=== PATIENT | male | born 1985 | race Caucasian/White ===

== ENCOUNTER 2022-03-18 13:24 | Emergency (ER) | payer BC, SELFPAY ==
[2022-03-18 13:38] VITALS: BP 157/90; PULSE 104; RESP 18; TEMP 36.9; O2SAT 100; BMI 27.0
--- NOTE | 2022-03-18 14:00 | ED_ITS ---
HPI - General Adult General Time Seen by Provider: 14:00 Date Seen: 03/18/22 Chief complaint: Anxiety Stated complaint: Facial Numbness, Shakey Time Seen by Provider: 03/18/22 13:52 Source: patient and family Mode of arrival: ambulatory Limitations: no limitations History of Present Illness HPI narrative: 36-year-old male who comes in today with episode of lightheadedness and anxiety. Patient reports a history of anxiety. He has noted recently that when he is in the car either driving or as a passenger he will get dizziness and subsequently this will cause panic attacks. Usually this gets better quickly. Today he was driving experience nausea. Stopped and stood up and got quite lightheaded. Subsequently started having some shortness of breath, tingling in hands and feet and face. This has persisted and so he came in the emergency department. He is feeling a little bit better now. He denies any palpitations or chest pain for this. Denies head pain or head injury. Admits to alcohol use yesterday but nothing to. Says he has been drinking lots of water this morning. Related Data Home Medications Medication Instructions Recorded Confirmed omeprazole 40 mg capsule,delayed mg 03/18/22 release Allergies Allergy/AdvReac Type Severity Reaction Status Date / Time No Known Drug Allergies Allergy Verified 03/18/22 13:48 Review of Systems Status of ROS: Reports: 10 or more systems reviewed and unremarkable except as noted in History and below PFSH PFSH Social History Smoking Status: Current some day smoker What tobacco products do you use: cigarettes Do you use any of these nicotine containing products: None Second hand tobacco smoke exposure: No How often do you have a drink containing alcohol: 4 or more times a week How many standard drinks containing alcohol do you have on a typical day: 1 or 2 How often do you have six or more drinks on one occasion: Never AUDIT-C Alcohol total score: 4 Non-prescribed substance use: denies use Exam Const: Vital Signs, click to edit/add: Vital Signs - 24 hr 03/18/22 13:38 03/18/22 14:28 03/18/22 15:01 Temperature 98.5 F Pulse Rate [Right Pulse Oximeter] 104 H 93 85 Respiratory Rate 18 16 16 Blood Pressure [Ri ght Upper Arm] 157/90 H Pulse Oximetry 100 99 95 Documenting provider has reviewed patient's vital signs: yes Common normals: no apparent distress, oriented x3, alert and well nourished HENMT: Common normals: normocephalic, head/scalp atraumatic, external ears normal and external nose normal Head and scalp: normocephalic and atraumatic Nose: external nose normal External ear: external ears normal Eye: Common normals: PERRL and conjunctivae normal Conjunctiva: conjunctiva(e) normal Pupil: PERRL Neck & C-Spine: Common normals: full ROM, no lymphadenopathy and supple Chest: Common normals: palpation of chest normal Resp: Common normals: normal respiratory effort and clear to auscultation bi laterally Auscultation: clear to auscultation bilaterally Cardio: Common normals: regular rate, regular rhythm and no murmurs Rate: regular rate Rhythm: regular rhythm GI: Common normals: Normal to inspection, nondistended, normoactive bowel sounds present, soft to palpation and non-tender Palpation: soft : Common normals: no CVA tenderness Bladder/kidney exam: no CVA tenderness Back & Pelvis: Common normals: no CVA tenderness and thoracic and lumbar spine normal to inspection Extremity: Common normals: normal to inspection, full ROM and no pedal edema Neuro: Common normals: oriented x3, CN's II-XII intact bilaterally and no focal motor deficits Sensorium/orientation: alert Psych: Common normals: mental status grossly normal Skin: Common normals: no rashes or lesions noted General skin exam: no rashes or lesions noted Course Reevaluation(s) Reevaluation #1: Labs are reassuring, patient remains finally stable in the emergency department and can be discharged. Symptoms have improved. We discussed further treatment options including CBT and physical/occupational therapy. He will follow up with primary care doctor. Time: 15:11 Vital Signs Vital signs: Initial Vital Signs Temperature 98.5 F 03/18/22 13:38 Temperature Source Oral 03/18/22 13:38 Pulse Rate 104 H 03/18/22 13:38 Respiratory Rate 18 03/18/22 13:38 Blood Pressure 157/90 H 03/18/22 13:38 Blood Pressure Mean 112 03/18/22 13:38 Blood Pressure Position Sitting 03/18/22 13:38 Pulse Oximetry 100 03/18/22 13:38 Oxygen Delivery Method 03/18/22 13:38 Vital Signs Temperature 98.5 F 03/18/22 13:38 Pulse Rate 104 H 03/18/22 13:38 Respiratory Rate 18 03/18/22 13:38 Blood Pressure 157/90 H 03/18/22 13:38 Pulse Oximetry 100 03/18/22 13:38 Temperature 98.5 F 03/18/22 13:38 Pulse Rate 85 03/18/22 15:01 Respiratory Rate 16 03/18/22 15:01 Blood Pressure 157/90 H 03/18/22 13:38 Pulse Oximetry 95 03/18/22 15:01 Medical Decision Making MDM Narrative Medical decision making narrative: Patient seen and examined, prior records are reviewed. Differential diagnosis includes but not limited to acute anxiety, vertigo, dysrhythmia, dehydration, hyponatremia, other electrolyte disturbance. Patient presents with lightheadedness and what sounds like paresthesias with early carpal pedal spasm. Feeling better now although still mildly tachycardic and was little bit tremulous when he 1st arrived in the emergency department. Labs and EKG are ordered. IV fluids are ordered. Medical Records Medical records reviewed: Yes I reviewed the patient's medical records Lab Data Lab results reviewed: Yes I reviewed the patient's lab results Labs: Lab Results 03/18/22 Range/Units 14:15 Sodium 137 (135-149) mmol/L Potassium 3.4 L (3.6-5.1) mmol/L Chloride 107 (96-114) mmol/L Carbon Dioxide 23 (20-32) mmol/L BUN 15 (5-24) mg/dL Creatinine 1.0 (0.5-1.5) mg/dL Estimated Creat Clear 115.41 Estimated GFR 100 ml/min Glucose 103 (60-115) mg/dL Calcium 9.0 (8.4-10.6) mg/dL ECG Data Attestation: I personally reviewed and interpreted this ECG as follows: Prior ECG tracings: not available for review Interpretation: Performed at 2:05PM demonstrates NSR rate 89, no acute ST elevations or depressions, [place] 164, normal axis. No prior for comparison. Discharge Plan Discharge Clinical Impression: Near syncope, Acute anxiety Patient Disposition: Home, Self-Care Condition: Improved Instructions: Near Syncope (ED), Anxiety (ED) Additional Instructions: Follow-up with your primary care doctor this week, consider follow-up to a [facility] Activity Level: No Restrictions Discharge Diet: Regular Prescriptions: No Action omeprazole 40 mg capsule,delayed release(DR/EC) 0RF Label Comments: TAKE 1 CAPSULE (40 MG) BY MOUTH ONCE DAILY BEFORE A MEAL. Follow Up/Referrals: Norm Duncan MD [Primary Care Provider] - Stand Alone Forms: [facility] Info Instructions
[2022-03-18] MEDS: 0.9 % SODIUM CHLORIDE 1000 ml 1,000 ML IV (14:21)
[2022-03-18 14:28] VITALS: PULSE 93; RESP 16; O2SAT 99
[2022-03-18 14:42] LABS: Chloride* 107 mmol/L (96-114)
[2022-03-18 14:43] LABS: Potassium* 3.4 mmol/L (3.6-5.1); Sodium* 137 mmol/L (135-149)
[2022-03-18 14:45] LABS: Carbon Dioxide* 23 mmol/L (20-32); Est. Creatinine Clearance* 115.41; Estimated Glomerular Filt Rate 100 ml/min
[2022-03-18 14:46] LABS: Blood Urea Nitrogen* 15 mg/dL (5-24); Glucose* 103 mg/dL (60-115)
[2022-03-18 15:01] VITALS: PULSE 85; RESP 16; O2SAT 95
== END 2022-03-18 15:21 | disposition home or self-care (01) ==
LOC: ED 14:24
PROVIDERS: Emergency Provider Family Medicine; PCP Surgery
DX: R55 Syncope and collapse (principal); F41.9 Anxiety disorder, unspecified
CPT/HCPCS: 36415; 80048; 93005; 96360; 99284; J7030

== ENCOUNTER 2022-03-20 13:26 | Emergency (ER) | payer BC, SELFPAY ==
[2022-03-20] VITALS (7 sets, daily range): BP systolic 116–164; BP diastolic 74–106; PULSE 52–91; RESP 17–20; TEMP 37.1; O2SAT 96–99; BMI 26.4
--- NOTE | 2022-03-20 13:57 | ED.NEUROSD ---
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 However, he reports persistent and severe symptoms causing difficulty with ability to perform ADLs. His significant other reports the symptoms are worsening his anxiety, and symptoms appear to precede the anxiety. The patient denies chest pain, shortness a breath, or abdominal pain. The patient reports some nausea associated with symptoms and persisting at present. Patient reports visual field deficits with black/white 'dots/speckles' noted the periphery. He denies trauma or injury. He reports all previous manic episodes have self-resolved. He does have history of serotonin syndrome associated with SSRI use. Related Data Home Medications Medication Instructions Recorded Confirmed omeprazole 40 mg capsule,delayed mg 03/18/22 release Allergies Allergy/AdvReac Type Severity Reaction Status Date / Time No Known Drug Allergies Allergy Verified 03/18/22 13:48 PFSH PFSH Social History Smoking Status: Current some day smoker What tobacco products do you use: cigarettes Do you use any of these nicotine containing products: None Second hand tobacco smoke exposure: No How often do you have a drink containing alcohol: 4 or more times a week How many standard drinks containing alcohol do you have on a typical day: 1 or 2 How often do you have six or more drinks on one occasion: Never AUDIT-C Alcohol total score: 4 Non-prescribed substance use: denies use Exam Const: Vital Signs, click to edit/add: Vital Signs - 24 hr 03/20/22 13:49 03/20/22 14:43 03/20/22 15:10 Temperature 98.8 F Pulse Rate [Pulse Oximeter] 91 64 Respiratory Rate 18 17 Blood Pressure [Ri ght Upper Arm] 164/106 H 133/86 Pulse Oximetry 99 97 97 Oxygen Delivery Me thod Room Air Room Air Room Air 03/20/22 15:30 03/20/22 16:00 03/20/22 17:30 Temperature Pulse Rate [Pulse Oximeter] 55 L 64 52 L Respiratory Rate 19 20 Blood Pressure [Ri ght Upper Arm] 128/74 116/80 126/84 Pulse Oximetry 96 96 96 Oxygen Delivery Me thod Room Air Room Air Room Air 03/20/22 18:00 Temperature Pulse Rate [Pulse Oximeter] 60 Respiratory Rate 20 Blood Pressure [Ri t Upper Arm] 137/93 H Pulse Oximetry 98 Oxygen Delivery Me thod Room Air Documenting provider has reviewed patient's vital signs: yes Common normals: no apparent distress, oriented x3, alert and well nourished General appearance: cooperative, comfortable, well kempt and well developed Orientation/consciousness: Yes awake, Yes oriented to person and Yes oriented to place HENMT: Common normals: normocephalic, head/scalp atraumatic, hearing grossly normal bilaterally, external ears normal and TM's normal bilaterally Head and scalp: normocephalic and atraumatic External ear: external ears normal Tympanic membrane: TM's normal bilaterally Mouth: oral and palatal mucosa normal and tongue normal Eye: Common normals: PERRL and EOMs intact bilaterally Alignment: alignment normal Pupil: PERRL and accommodation reflex normal Neck & C-Spine: Common normals: full ROM, no lymphadenopathy and supple Resp: Common normals: normal respiratory effort, no retractions, no use of accessory muscles and clear to auscultation bilaterally Auscultation: clear to auscultation bilaterally Cardio: Common normals: regular rate, regular rhythm, S1 normal heart sound, S2 normal heart sound, no gallops, no clicks and no murmurs Rate: regular rate Rhythm: regular rhythm Heart sounds: S1 normal and S2 normal GI: Common normals: Normal to inspection, nondistended, normoactive bowel sounds present, soft to palpation and non-tender Palpation: soft Extremity: Common normals: normal to inspection and full ROM Neuro: [place]ascade Coma Scale: document GCS findings (NIHSS score 0) Cascade coma scale eye opening: Spontaneous (4) Cascade coma scale verbal response: Orientated (5) [place] coma scale motor response: Obey commands (6) Cascade coma scale total score: 15 Common normals: oriented x3 Sensorium/orientation: awake, alert, oriented to person and oriented to place Coordination/balance: [id number] test normal and other (See PT exam for abnormal coordination findings) Speech: speech normal Gait (neuro): normal gait Motor exam: strength 5/5 throughout, no pronator drift and other (Patient noted to have left lower extremity weakness with testing) Coordination: [id number] test normal and other (See PT exam for abnormal coordination findings) Psych: Common normals: mental status grossly normal, thought process normal, cooperative, affect normal and speech normal Appearance: well kempt Speech: normal speech Thought process: normal thought process Insight: insight good Judgement: judgment good Skin: Common normals: no rashes or lesions noted General skin exam: no rashes or lesions noted Course Reevaluation(s) Reevaluation #1: Discussed findings and course with patient and his significant other, who requests more definitive findings with continued symptoms with additional imaging. Discussed PT findings that are inconsistent with peripheral findings. Time: 15:31 Reevaluation #2: Imaging and labs reviewed and discussed with patient and family. Patient reports improvement in symptoms. Patient's vital signs have remained stable. The results were discussed, and the patient verbalized understanding. Reasons for follow-up or return were discussed. Vital Signs Vital signs: Initial Vital Signs Temperature 98.8 F 03/20/22 13:49 Temperature Source Temporal Artery Scan 03/20/22 13:49 Pulse Rate 91 03/20/22 13:49 Respiratory Rate 18 03/20/22 13:49 Blood Pressure 164/106 H 03/20/22 13:49 Blood Pressure Mean 125 03/20/22 13:49 Blood Pressure Position Sitting 03/20/22 13:49 Pulse Oximetry 99 03/20/22 13:49 Oxygen Delivery Method 03/20/22 13:49 Vital Signs Temperature 98.8 F 03/20/22 13:49 Pulse Rate 91 03/20/22 13:49 Respiratory Rate 18 03/20/22 13:49 Blood Pressure 164/106 H 03/20/22 13:49 Pulse Oximetry 99 03/20/22 13:49 Oxygen Delivery Method 03/20/22 13:49 Temperature 98.8 F 03/20/22 13:49 Pulse Rate 60 03/20/22 18:00 Respiratory Rate 20 03/20/22 18:00 Blood Pressure 137/93 H 03/20/22 18:00 Pulse Oximetry 98 03/20/22 18:00 Oxygen Delivery Method 03/20/22 18:00 MDM - Neuro Symptoms/Deficit MDM Narrative Medical decision making narrative: Multiple differential diagnoses were considered protamine status. The life-threatening differential diagnoses considered include bacteremia or other infectious concern, subdural hematoma, CVA, subarachnoid hemorrhage, and hypertensive encephalopathy. Other differential diagnoses include electrolyte abnormalities, intoxication, seizure, as well as other etiologies. Lab Data Attestation: I reviewed the patient's lab results. Labs: Lab Results 03/20/22 03/20/22 03/20/22 Range/Units 13:58 14:50 14:50 WBC 8.05 (4.50-11.00) K/uL RBC 4.79 (4.30-5.90) m/uL Hgb 15.2 (13.5-17.5) gm/dL Hct 45.1 (37.0-53.0) % MCV 94 (80-100) fL MCH 32 (26-34) pg MCHC 34 (32-36) gm/dL RDW Coeff of Howard 12.1 (11.5-15.5) % Plt Count 262 (140-440) K/uL Neut % (Auto) 62.6 (42.0-72.0) % Lymph % (Auto) 25.5 (20-44) % [place] % (Auto) 8.0 (0.0-11.0) % Eos % (Auto) 1.9 (0.0-7.0) % Baso % (Auto) 0.6 (0.0-3.0) % Neut # (Auto) 5.05 (1.7-7.0) K/uL Lymph # (Auto) 2.05 (0.90-2.90) K/uL [place] # (Auto) 0.60 (0.00-0.90) K/UL Eos # (Auto) 0.15 (0.00-0.50) K/uL Baso # (Auto) 0.05 (0.00-0.30) K/uL Abs Immat Gran (auto) 0.11 (0.00-0.30) K/uL Sodium 139 (135-149) mmol/L Potassium 3.9 (3.6-5.1) mmol/L Chloride 106 (96-114) mmol/L Carbon Dioxide 27 (20-32) mmol/L BUN 10 (5-24) mg/dL Creatinine 1.0 (0.5-1.5) mg/dL Estimated Creat Clear 115.41 Estimated GFR 100 ml/min Glucose 106 (60-115) mg/dL Calcium 9.2 (8.4-10.6) mg/dL Total Bilirubin 0.2 (0.1-1.5) mg/dL AST 43 H (12-35) U/L ALT 40 (4-50) U/L Alkaline Phosphatase 54 (40-150) U/L Total Protein 7.4 (6.0-8.3) g/dL Albumin 4.4 (3.3-5.0) g/dL Urine Color (Yellow) Urine Appearance (Clear) Urine pH (5.0-8.5) Ur Specific [place] (1.000-1.030) Urine Protein (Negative) Urine Glucose (UA) (Negative) Urine Ketones (Negative) Urine Blood (Negative) Urine Nitrite (Negative) Urine Bilirubin (Negative) Urine Urobilinogen (0.2-1.0) Ur Leukocyte Esterase (Negative) Urine RBC (0-2) Urine WBC (0-5) Ur Squamous Epith Cells (None-Few) Urine Bacteria (None) Urine Opiates Screen (Negative) Ur Oxycodone Screen (Negative) Urine Methadone Screen (Negative) Ur Propoxyphene Screen (Negative) Ur Barbiturates Screen (Negative) U Tricyclic Antidepress (Negative) Ur Phencyclidine Scrn (Negative) Ur Amphetamines Screen (Negative) U Methamphetamines Scrn (Negative) U Benzodiazepines Scrn (Negative) Urine Cocaine Screen (Negative) U Marijuana (THC) Screen (Negative) Ur Drug Screen Comment SARS-CoV-2 (PCR) (Negative) POC Glucose 118 H (60-115) mg/dl 03/20/22 03/20/22 03/20/22 Range/Units 14:58 15:00 15:00 WBC (4.50-11.00) K/uL RBC (4.30-5.90) m/uL Hgb (13.5-17.5) gm/dL Hct (37.0-53.0) % MCV (80-100) fL MCH (26-34) pg MCHC (32-36) gm/dL RDW Coeff of Howard (11.5-15.5) % Plt Count (140-440) K/uL Neut % (Auto) (42.0-72.0) % Lymph % (Auto) (20-44) % [place] % (Auto) (0.0-11.0) % Eos % (Auto) (0.0-7.0) % Baso % (Auto) (0.0-3.0) % Neut # (Auto) (1.7-7.0) K/uL Lymph # (Auto) (0.90-2.90) K/uL [place] # (Auto) (0.00-0.90) K/UL Eos # (Auto) (0.00-0.50) K/uL Baso # (Auto) (0.00-0.30) K/uL Abs Immat Gran (auto) (0.00-0.30) K/uL Sodium (135-149) mmol/L Potassium (3.6-5.1) mmol/L Chloride (96-114) mmol/L Carbon Dioxide (20-32) mmol/L BUN (5-24) mg/dL Creatinine (0.5-1.5) mg/dL Estimated Creat Clear Estimated GFR ml/min Glucose (60-115) mg/dL Calcium (8.4-10.6) mg/dL Total Bilirubin (0.1-1.5) mg/dL AST (12-35) U/L ALT (4-50) U/L Alkaline Phosphatase (40-150) U/L Total Protein (6.0-8.3) g/dL Albumin (3.3-5.0) g/dL Urine Color Yellow (Yellow) Urine Appearance Clear (Clear) Urine pH 7.5 (5.0-8.5) Ur Specific [place] 1.015 (1.000-1.030) Urine Protein Negative (Negative) Urine Glucose (UA) Negative (Negative) Urine Ketones Negative (Negative) Urine Blood Negative (Negative) Urine Nitrite Negative (Negative) Urine Bilirubin Negative (Negative) Urine Urobilinogen 0.2 (0.2-1.0) Ur Leukocyte Esterase Negative (Negative) Urine RBC 0-2 (0-2) Urine WBC 0-2 (0-5) Ur Squamous Epith Cells None (None-Few) Urine Bacteria None (None) Urine Opiates Screen Negative (Negative) Ur Oxycodone Screen Negative (Negative) Urine Methadone Screen Negative (Negative) Ur Propoxyphene Screen Negative (Negative) Ur Barbiturates Screen Negative (Negative) U Tricyclic Antidepress Negative (Negative) Ur Phencyclidine Scrn Negative (Negative) Ur Amphetamines Screen Negative (Negative) U Methamphetamines Scrn Negative (Negative) U Benzodiazepines Scrn Negative (Negative) Urine Cocaine Screen Negative (Negative) U Marijuana (THC) Screen Negative (Negative) Ur Drug Screen Comment See Note SARS-CoV-2 (PCR) Negative SARS-CoV-2 (Negative) POC Glucose (60-115) mg/dl Imaging Data CT scan - head: Attestation: I have reviewed the pertinent imaging results. Radiologist's impression: IMPRESSION: No acute intracranial abnormality. MR Brain: Attestation: I have reviewed the pertinent imaging results. Radiologist's impression: IMPRESSION: 1. No acute intracranial abnormality. 2. Few punctate T2 FLAIR hyperintensities in the supratentorial white matter are nonspecific, though typical for sequelae of minimal chronic microvascular ischemic changes or migraine headaches. ECG Data Attestation: I personally reviewed and interpreted this ECG as follows: (NSR with normal axis. 63bpm. Normal intervals without ST-T wave changes.) Prior ECG tracings: not available for review Discharge Plan Discharge Clinical Impression: Complicated migraine, Near syncope Patient Disposition: Home, Self-Care Condition: Improved Instructions: Migraine Headache (ED) Additional Instructions: Thank you for choosing [facility] for your care today. Drink plenty of water. Consider Riboflavin (over the counter) 400mg each daily. Avoid headache triggers including drastic changes in caffeine intake, cheeses, significant changes in sugar intake, etc. There are foods known to cause or trigger migraines in patients, and you may consider keeping a food and headache log to evaluate if you have sensitivities to certain foods. Take medications as directed. There is a condition called rebound headache phenomenon that occurs with medication overuse. If headaches change in nature, frequency, intensity or there are new neurological concerns, you should follow-up with your primary physician who may recommend neurology consult for further evaluation. Consider referral to [facility] [address], for vision therapy. I recommend calling primary care for follow-up in the next 3-5 days. If new or worsening symptoms develop or you have any concerns in the meantime, please call your primary care clinic or return to the ER for re-evaluation. Activity Level: No Restrictions Discharge Diet: Regular Prescriptions: No Action omeprazole 40 mg capsule,delayed release(DR/EC) Label Comments: TAKE 1 CAPSULE (40 MG) BY MOUTH ONCE DAILY BEFORE A MEAL. Follow Up/Referrals: Norm Duncan MD [Primary Care Provider] - Stand Alone Forms: [facility] Info Instructions
--- NOTE | 2022-03-20 13:58 | CRLHL7_ITS ---
For Patients: As a result of the Century Cures Act, medical imaging exams and procedure reports are released immediately into your electronic medical record. You may view this report before your referring provider. If you have questions, please contact your health care provider. INDICATION: Dizziness. TECHNIQUE: CT head without contrast. COMPARISON: None. FINDINGS: Cerebral parenchyma: No evidence of acute territorial infarct. No acute intraparenchymal hemorrhage. No significant mass effect/midline shift. Normal parker-white matter differentiation. Extra-axial spaces: No extra-axial collection or hemorrhage. Ventricles: Unremarkable. Calvarium: Intact. Visualized paranasal sinuses/mastoid air cells: Mild mucosal opacification of the ethmoid air cells. Posterior fossa: No cerebellar tonsillar herniation. Visualized orbits: Unremarkable. IMPRESSION: No acute intracranial abnormality. Please note that all CT scans at this facility use dose modulation, iterative reconstruction, and/or weight-based dosing when appropriate to reduce radiation dose to as low as reasonably achievable. Dictated by Kamran Raphael MD @ 03/20/2022 3:11:54 PM (Electronically Signed)
[2022-03-20 14:33] LABS: Glucose, Point-of-Care* 118 mg/dl (60-115)
--- NOTE | 2022-03-20 14:41 | ED.NURSE ---
Physical Therapy in room for consult.
[2022-03-20 15:07] LABS: Basophils Absolute Auto 0.05 K/uL (0.00-0.30); Basophils Percent Auto 0.6 % (0.0-3.0); Eosinophils Absolute Auto 0.15 K/uL (0.00-0.50); Eosinophils Percent Auto 1.9 % (0.0-7.0); Hematocrit 45.1 % (37.0-53.0); Hemoglobin* 15.2 gm/dL (13.5-17.5); Immature Granulocytes Abs Auto 0.11 K/uL (0.00-0.30); Lymphocytes Absolute Auto 2.05 K/uL (0.90-2.90); Lymphocytes Percent Auto 25.5 % (20-44); Mean Corpuscular HGB Conc 34 gm/dL (32-36); Mean Corpuscular Hemoglobin 32 pg (26-34); Mean Corpuscular Volume 94 fL (80-100); Neutrophils Absolute Auto 5.05 K/uL (1.7-7.0); Neutrophils Percent Auto 62.6 % (42.0-72.0); Platelet Count* 262 K/uL (140-440); RDW Coefficient of Variation % 12.1 % (11.5-15.5); Red Blood Count 4.79 m/uL (4.30-5.90); White Blood Count* 8.05 K/uL (4.50-11.00)
--- NOTE | 2022-03-20 15:09 | REH.PT ---
Pt seen bedside for PT consult. Complains of dizziness and balance issues. Reports that when he is walking slowly it feels as if he is racing ahead like on a roller coaster. Physical Assessment: While standing at edge of bed pt demonstrated uneven visual tracking when rotating head side<>side. Unsteady with head turns side<>side with eyes open and steady with eyes closed. MMT of LE's and UE's indicate deficits of left hip flexion, abduction and knee flexion and knee extension all 3+/5 compared to 5/5 on contralateral side. Single leg stance on right LE normal without LOB, on Left LE pt had immediate loss of balance. Gait steady without AD but pt reports visual feedback that doesn't match the speed with which he is walking. updated on findings by content writer.
[2022-03-20 15:12] LABS: Appearance Urine Clear (Clear); Bilirubin Urine Negative (Negative); Blood Urine Negative (Negative); Color Urine Yellow (Yellow); Glucose Urine Negative (Negative); Ketones Urine Negative (Negative); Leukocyte Esterase Urine Negative (Negative); Nitrite Urine Negative (Negative); Protein Urine Negative (Negative); Specific Gravity Urine 1.015 (1.000-1.030); Urobilinogen Urine 0.2 (0.2-1.0); pH Urine 7.5 (5.0-8.5)
[2022-03-20 15:16] LABS: Amphetamine Screen Urine Negative (Negative); Barbiturate Screen Urine Negative (Negative); Benzodiazepines Screen Urine Negative (Negative); Cannabinoid Screen Urine Negative (Negative); Cocaine Screen Urine Negative (Negative); Methadone Screen Urine Negative (Negative); Methamphetamines Screen Urine Negative (Negative); Opiate Screen Urine Negative (Negative); Oxycodone Screen Urine Negative (Negative); Phencyclidine Screen Urine Negative (Negative); Tricyclic Antidepressant Urine Negative (Negative)
[2022-03-20 15:18] LABS: Albumin* 4.4 g/dL (3.3-5.0); Chloride* 106 mmol/L (96-114); Potassium* 3.9 mmol/L (3.6-5.1); Sodium* 139 mmol/L (135-149)
[2022-03-20 15:20] LABS: Est. Creatinine Clearance* 115.41; Estimated Glomerular Filt Rate 100 ml/min; Slide Review Reflex No
[2022-03-20 15:21] LABS: Alanine Aminotransferase* 40 U/L (4-50); Alkaline Phosphatase* 54 U/L (40-150); Aspartate Amino Transferase* 43 U/L (12-35); Bilirubin Total* 0.2 mg/dL (0.1-1.5); Blood Urea Nitrogen* 10 mg/dL (5-24); Calcium* 9.2 mg/dL (8.4-10.6); Carbon Dioxide* 27 mmol/L (20-32); Glucose* 106 mg/dL (60-115); Total Protein* 7.4 g/dL (6.0-8.3)
[2022-03-20 15:37] LABS: RBC Urine 0-2 (0-2); WBC Urine 0-2 (0-5)
[2022-03-20] MEDS: ONDANSETRON 2 MG/ML inj 4 MG IVP (15:37)
--- NOTE | 2022-03-20 15:56 | CRLHL7_ITS ---
For Patients: As a result of the Century Cures Act, medical imaging exams and procedure reports are released immediately into your electronic medical record. You may view this report before your referring provider. If you have questions, please contact your health care provider. INDICATION: Dizziness. TECHNIQUE: Multiplanar multisequence MR imaging acquired the brain prior to and following intravenous contrast. COMPARISON: CT brain 03/20/2022 FINDINGS: The ventricles and sulci are within normal limits for patient age. No mass effect or midline shift. A few punctate T2 FLAIR hyperintensities in the supratentorial white matter, nonspecific. No intracranial hemorrhage or pathologic extra-axial fluid collection. No diffusion restriction to suggest acute infarction. No pathologic intracranial enhancement. 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 The major arterial flow voids of the skullbase are preserved. The globes are symmetric. [id number] ethmoid sinus mucosal thickening. The mastoid air cells are clear. IMPRESSION: 1. No acute intracranial abnormality. 2. Few punctate T2 FLAIR hyperintensities in the supratentorial white matter are nonspecific, though typical for sequelae of minimal chronic microvascular ischemic changes or migraine headaches. Dictated by Eddi Still MD @ 03/20/2022 5:31:34 PM (Electronically Signed)
[2022-03-20 16:09] LABS: SARS PCR* Negative SARS-CoV-2 (Negative)
--- NOTE | 2022-03-20 16:30 | ED.NURSE ---
Pt at MRI for exam.
== END 2022-03-20 18:13 | disposition home or self-care (01) ==
PROVIDERS: Emergency Provider Family Medicine; PCP Surgery
DX: R55 Syncope and collapse (principal); G43.909 Migraine, unspecified, not intractable, without status migrainosus
CPT/HCPCS: 36415; 70450; 70553; 80053; 80306; 81001; 82947; 85025; 87635; 93005; 96374; 97161; 99284; 99285; A9575; J2405

== ENCOUNTER 2023-03-02 15:10 | Emergency (ER) | payer BC, SELFPAY ==
[2023-03-02 15:22] VITALS: BP 141/104; PULSE 67; RESP 22; TEMP 36.4; O2SAT 100; BMI 27.1
--- NOTE | 2023-03-02 15:54 | ED.GENADULT ---
HPI - General Adult General Date Seen: 03/02/23 Chief complaint: Dizziness/Vertigo Stated complaint: Dizzy, high blood pressure Time Seen by Provider: 03/02/23 15:37 Source: patient Mode of arrival: ambulatory Limitations: no limitations History of Present Illness HPI narrative: Patient is a 37-year-old male who a year ago started to have problems with vertigo, had a workup with no significant findings and ultimately was diagnosed with vestibular migraine. He also tells me that as of last year he started to have higher blood pressures, was told to monitor it and ultimately had been advised to make some lifestyle changes. He does tell me since then he started to smoke again and has a higher stressed job. He says this morning he had bent down to empty out a sandbox, stood up and developed vertigo. He feels dizzy when he walks or when he looks down, symptoms are similar to normal but he says while he feels slightly dizzy every day he usually gets better with Dramamine and today symptoms have persisted. He does not get headaches, he does get some pain behind his eyes. He has not had any vomiting. He did start to follow his blood pressure this morning and noted that it was elevated, so he thought he should come in to be checked. Related Data Home Medications Medication Instructions Recorded Confirmed omeprazole 40 mg capsule,delayed mg 03/18/22 release Allergies Allergy/AdvReac Type Severity Reaction Status Date / Time No Known Drug Allergies Allergy Verified 03/18/22 13:48 Review of Systems Status of ROS: Reports: 10 or more systems reviewed and unremarkable except as noted in History and below PFSH [facility] Social History Smoking Status: Current some day smoker What tobacco products do you use: cigarettes Do you use any of these nicotine containing products: None Second hand tobacco smoke exposure: No How often do you have a drink containing alcohol: 4 or more times a week How many standard drinks containing alcohol do you have on a typical day: 3 or 4 How often do you have six or more drinks on one occasion: Never AUDIT-C Alcohol total score: 5 Non-prescribed substance use: denies use service: Yes Exam Narrative: Exam Narrative: Vital signs as noted above. In general, an alert, well-appearing patient. Head: Normocephalic, atraumatic. Eyes: Pupils are equal reactive. Extraocular movements are full. Conjunctivae are normal. Some nystagmus on leftward gaze. ENT: Mucous membranes are moist. Throat is normal. TMs normal bilaterally. Neck: Supple without lymphadenopathy. Heart: Regular rate and rhythm. No murmur or rub. Lungs: Clear bilaterally. No increased work of breathing, crackles or wheezes. Abdomen: Soft and nontender. No organomegaly. Extremities: Well perfused. No edema. No calf tenderness. Pulses intact. Neurologic: Patient is alert and oriented to person and place. Speech is fluent. Face is symmetric. Moves all extremities equally. Cerebellar function intact by finger-nose testing. Affect: Normal. Skin: Warm and dry. Well perfused. Const: Vital Signs, click to edit/add: Vital Signs - 24 hr 03/02/23 15:22 03/02/23 17:06 Temperature 97.6 F Pulse Rate [Pulse Oximeter] 67 78 Respiratory Rate 22 16 Blood Pressure [Ri ght Upper Arm] 141/104 H 125/81 Pulse Oximetry 100 96 Oxygen Delivery Me thod Room Air Room Air Documenting provider has reviewed patient's vital signs: yes Course Course Hospital Course: Overall symptoms are consistent with his previous diagnosis of vestibular migraine, I do not see anything here to suggest a new acute process. Neurologic exam is unremarkable. Blood pressure here is somewhat elevated, but I have reviewed with him I do not think that is the cause of his symptoms today. I do not think imaging is needed. I have recommended that we treat symptomatically and see how his blood pressure does. I do think he may ultimately need treatment for his blood pressure at this point but I think this can be followed with primary care. I do not think symptoms today are likely related to ischemic or hemorrhagic stroke, dissection, or other acute process. Patient is feeling improved after treatment, symptoms are not entirely resolved but he is ambulatory without difficulty, nausea is gone. His labs are normal including CBC, metabolic panel, magnesium. In talking with him, it sounds like he has been seen by multiple different people for these symptoms, and has been tried on a number of different migraine preventative medicines. He has also been tried on medications for acute treatment such as sumatriptan but all of these medications cause various side effects. I have tried to reinforce with him that because I think he has some anxiety around taking medicines, he is likely to have some degree of side effects for all medications, and he may have to push through this to give medications a couple of weeks to see whether they work. I have encouraged him to make another follow-up appointment with neurology to discuss. In the meantime, he can use his Dramamine, I gave some Ativan and Zofran if needed for further symptoms. Return at any time for acute worsening. Blood pressure did normalize without specific treatment. Vital Signs Vital signs: Initial Vital Signs Temperature 97.6 F 03/02/23 15:22 Temperature Source Temporal Artery Scan 03/02/23 15:22 Pulse Rate 67 03/02/23 15:22 Pulse Rhythm Regular 03/02/23 15:22 Respiratory Rate 22 03/02/23 15:22 Blood Pressure 141/104 H 03/02/23 15:22 Blood Pressure Mean 116 H 03/02/23 15:22 Blood Pressure Position Supine 03/02/23 15:22 Pulse Oximetry 100 03/02/23 15:22 Oxygen Delivery Method Room Air 03/02/23 15:22 Vital Signs Temperature 97.6 F 03/02/23 15:22 Pulse Rate 67 03/02/23 15:22 Respiratory Rate 22 03/02/23 15:22 Blood Pressure 141/104 H 03/02/23 15:22 Pulse Oximetry 100 03/02/23 15:22 Oxygen Delivery Method Room Air 03/02/23 15:22 Temperature 97.6 F 03/02/23 15:22 Pulse Rate 78 03/02/23 17:06 Respiratory Rate 16 03/02/23 17:06 Blood Pressure 125/81 03/02/23 17:06 Pulse Oximetry 96 03/02/23 17:06 Oxygen Delivery Method Room Air 03/02/23 17:06 Medical Decision Making Lab Data Labs: Lab Results 03/02/23 Range/Units 16:10 WBC 10.58 (4.50-11.00) K/uL RBC 4.90 (4.30-5.90) m/uL Hgb 15.5 (13.5-17.5) gm/dL Hct 46.4 (37.0-53.0) % MCV 95 (80-100) fL MCH 32 (26-34) pg MCHC 33 (32-36) gm/dL RDW Coeff of [place] 11.8 (11.5-15.5) % Plt Count 197 (140-440) K/uL Neut % (Auto) 70.0 (42.0-72.0) % Lymph % (Auto) 21.2 (20-44) % [place] % (Auto) 7.2 (0.0-11.0) % Eos % (Auto) 0.9 (0.0-7.0) % Baso % (Auto) 0.5 (0.0-3.0) % Neut # (Auto) 7.42 H (1.7-7.0) K/uL Lymph # (Auto) 2.24 (0.90-2.90) K/uL [place] # (Auto) 0.80 (0.00-0.90) K/UL Eos # (Auto) 0.09 (0.00-0.50) K/uL Baso # (Auto) 0.05 (0.00-0.30) K/uL Abs Immat Gran (auto) 0.02 (0.00-0.30) K/uL Imm/Tot Granulo (auto) 0.2 % Sodium 139 (135-149) mmol/L Potassium 4.0 (3.6-5.1) mmol/L Chloride 105 (96-114) mmol/L Carbon Dioxide 27 (20-32) mmol/L BUN 13 (5-24) mg/dL Creatinine 0.9 (0.5-1.5) mg/dL Estimated Creat Clear 123.35 Estimated GFR 113 ml/min Glucose 102 (60-115) mg/dL Calcium 9.3 (8.4-10.6) mg/dL Magnesium 2.0 (1.5-2.6) mg/dL Discharge Plan Discharge Clinical Impression: Positional vertigo Patient Disposition: Home, Self-Care Condition: Improved Instructions: Dizziness (ED) Additional Instructions: Continue current medications. Consider monitoring blood pressure a few times a week and discuss management with your primary doctor. I would recommend another follow-up appointment with neurology to discuss prophylactic medication for vestibular migraine. Prescriptions: No Action omeprazole 40 mg capsule,delayed release(DR/EC) Patient Comments: TAKE 1 CAPSULE (40 MG) BY MOUTH ONCE DAILY BEFORE A MEAL. Follow Up/Referrals: Norm Duncan MD [Primary Care Provider] - Stand Alone Forms: [employer] Info Instructions
[2023-03-02 16:17] LABS: Basophils Absolute Auto 0.05 K/uL (0.00-0.30); Basophils Percent Auto 0.5 % (0.0-3.0); Eosinophils Absolute Auto 0.09 K/uL (0.00-0.50); Eosinophils Percent Auto 0.9 % (0.0-7.0); Hematocrit 46.4 % (37.0-53.0); Hemoglobin* 15.5 gm/dL (13.5-17.5); Immature Granulocytes Abs Auto 0.02 K/uL (0.00-0.30); Immature Granulocytes Pct Auto 0.2 %; Lymphocytes Absolute Auto 2.24 K/uL (0.90-2.90); Lymphocytes Percent Auto 21.2 % (20-44); Mean Corpuscular HGB Conc 33 gm/dL (32-36); Mean Corpuscular Hemoglobin 32 pg (26-34); Mean Corpuscular Volume 95 fL (80-100); Monocytes Percent Auto 7.2 % (0.0-11.0); Neutrophils Absolute Auto 7.42 K/uL (1.7-7.0); Platelet Count* 197 K/uL (140-440); RDW Coefficient of Variation % 11.8 % (11.5-15.5); White Blood Count* 10.58 K/uL (4.50-11.00)
[2023-03-02 16:20] LABS: Slide Review Reflex No
[2023-03-02] MEDS: ONDANSETRON 2 MG/ML inj 4 MG IVP (16:20)
[2023-03-02] MEDS: 0.9 % SODIUM CHLORIDE 1000 ml 1,000 ML IV (16:21)
[2023-03-02] MEDS: LORazepam 2 MG/ML inj 1 MG IVP (16:21)
[2023-03-02 16:32] LABS: Chloride* 105 mmol/L (96-114); Sodium* 139 mmol/L (135-149)
[2023-03-02 16:35] LABS: Blood Urea Nitrogen* 13 mg/dL (5-24); Carbon Dioxide* 27 mmol/L (20-32); Creatinine* 0.9 mg/dL (0.5-1.5); Est. Creatinine Clearance* 123.35; Estimated Glomerular Filt Rate 113 ml/min; Glucose* 102 mg/dL (60-115)
[2023-03-02 16:36] LABS: Calcium* 9.3 mg/dL (8.4-10.6)
[2023-03-02 17:06] VITALS: BP 125/81; PULSE 78; RESP 16; O2SAT 96
== END 2023-03-02 17:43 | disposition home or self-care (01) ==
PROVIDERS: Emergency Provider Emergency Medicine; PCP Surgery
DX: R42 Dizziness and giddiness (principal)
CPT/HCPCS: 36415; 80048; 83735; 85025; 93005; 96374; 96375; 99283; 99284; J2060; J2405; J7030

== ENCOUNTER 2023-05-11 12:13 | Emergency (ER) | payer BC, SELFPAY ==
[2023-05-11 12:35] VITALS: BP 160/99; PULSE 83; RESP 18; TEMP 37.4; O2SAT 97; BMI 28.5
--- NOTE | 2023-05-11 13:01 | ED.GENADULT ---
HPI - General Adult General Time Seen by Provider: 13:01 Date Seen: 05/11/23 Chief complaint: Sore Throat Stated complaint: Swelling lumps in neck, hard time swallowing Time Seen by Provider: 05/11/23 13:00 Source: patient and RN notes reviewed Mode of arrival: ambulatory Limitations: no limitations History of Present Illness HPI narrative: This 37-year-old male who is coming in with week's worth history of right sided neck/throat pain. States it started with sneezing if felt sharp pain in his neck. Since that time he is had pain with swallowing on the right side of his neck. He feels at times slight ever food may go into the wrong ?tube?. It is only on the right side. He went to urgent care in [place] couple weeks ago and was given antibiotics and steroids and did nothing. He maybe notes his voice is hoarse at times. No respiratory symptoms, no noted fevers but has felt warm at times. Does not note any double vision, no difficulty actually chewing. He can swallow but feels like the mechanism of swallowing may be difficult in causes pain on that right side inside his throat or neck. He notes in the last year he is felt dizzy, has developed migraine headaches which he never had. Over the last week he notes his arms were cramping up. He does not feel like food is getting stuck in the esophagus. Related Data Home Medications Medication Instructions Recorded Confirmed omeprazole 40 mg capsule,delayed 40 mg PO DAILY 03/18/22 05/11/23 release amoxicillin 500 mg tablet mg PO 05/11/23 famotidine 20 mg tablet 20 mg PO 05/11/23 prednisone 20 mg tablet 40 mg PO DAILY 05/11/23 05/11/23 Allergies Allergy/AdvReac Type Severity Reaction Status Date / Time No Known Drug Allergies Allergy Verified 05/11/23 12:38 Review of Systems Status of ROS: Reports: 6 or more systems reviewed and unremarkable except as noted in History and below [facility] Social History Smoking Status: Current some day smoker What tobacco products do you use: cigarettes Do you use any of these nicotine containing products: None Second hand tobacco smoke exposure: No How often do you have a drink containing alcohol: 4 or more times a week How many standard drinks containing alcohol do you have on a typical day: 3 or 4 How often do you have six or more drinks on one occasion: Never AUDIT-C Alcohol total score: 5 Non-prescribed substance use: denies use service: Yes Exam Const: Vital Signs, click to edit/add: Vital Signs - 24 hr 05/11/23 12:35 05/11/23 14:30 Temperature 99.4 F Pulse Rate [Pulse Oximeter] 83 69 Respiratory Rate 18 16 Blood Pressure [Ri ght Upper Arm] 160/99 H 129/83 Pulse Oximetry 97 97 Oxygen Delivery Me thod Room Air Room Air 37-year-old male is alert, interactive, no apparent distress. Pupils are equal round, sclera clear, extraocular muscles intact. TMs canals are normal, no evidence of infection or abnormality noted. He has symmetrical facial function. Speech is normal. Oropharynx shows normal posterior pharynx, palate does elevate, uvula and pharynx normal, no exudates or erythema. Dentition good repair, tongue normal in protrudes midline. Neck is supple, I feel no masses, no reproducible pain, no adenopathy, no thyromegaly masses or nodules. Lungs are clear, good air entry, no wheezing crackles. CV regular rate and rhythm, no murmur. Documenting provider has reviewed patient's vital signs: yes Course Course ED Course: This patient is going to have a soft tissue neck CT to rule out structural have normality this within the neck. He is aware he will need an IV as IV contrast is needed. Will do some baseline labs. Have reviewed with him if the workup is negative here, may need to see ENT next step. He states he does have an appointment in May with the ENT in [place]. Reevaluation(s) Time of Reevaluation #1: 15:06 Reevaluation #1: Reviewed his normal soft tissue neck CT and provided a copy. Labs are all normal and reassuring. We did spend some time discussing difficulty swallowing such as dysphagia. If food is getting stuck, that would suggest he would need an EGD. If he is having difficulty actually swallowing where he can not get food down or make the bolus to get the food down, if that starts happening, he would need further evaluation, possible further labs possible neuro imaging. At this time he does not need any neuro imaging and neuro imaging that he would need should he develop swallowing difficulties would be an MRI which we would not do emergently through the ER. He does need to follow up with ENT at this point. Vital Signs Vital signs: Initial Vital Signs Temperature 99.4 F 05/11/23 12:35 Temperature Source Temporal Artery Scan 05/11/23 12:35 Pulse Rate 83 05/11/23 12:35 Respiratory Rate 18 05/11/23 12:35 Blood Pressure 160/99 H 05/11/23 12:35 Blood Pressure Mean 119 H 05/11/23 12:35 Blood Pressure Position Sitting 05/11/23 12:35 Pulse Oximetry 97 05/11/23 12:35 Oxygen Delivery Method Room Air 05/11/23 12:35 Vital Signs Temperature 99.4 F 05/11/23 12:35 Pulse Rate 83 05/11/23 12:35 Respiratory Rate 18 05/11/23 12:35 Blood Pressure 160/99 H 05/11/23 12:35 Pulse Oximetry 97 05/11/23 12:35 Oxygen Delivery Method Room Air 05/11/23 12:35 Temperature 99.4 F 05/11/23 12:35 Pulse Rate 69 05/11/23 14:30 Respiratory Rate 16 05/11/23 14:30 Blood Pressure 129/83 05/11/23 14:30 Pulse Oximetry 97 05/11/23 14:30 Oxygen Delivery Method Room Air 05/11/23 14:30 Medical Decision Making Lab Data Lab results reviewed: Yes I reviewed the patient's lab results Labs: Lab Results 05/11/23 Range/Units 13:21 ESR < 2 L (2-15) mm/hr Sodium 140 (135-149) mmol/L Potassium 4.5 (3.6-5.1) mmol/L Chloride 104 (96-114) mmol/L Carbon Dioxide 29 (20-32) mmol/L Anion Gap 7 (7-15) mEq/L BUN 15 (5-24) mg/dL Creatinine 1.0 (0.5-1.5) mg/dL Estimated Creat Clear 111.01 Estimated GFR 99 ml/min Glucose 104 (60-115) mg/dL Calcium 9.8 (8.4-10.6) mg/dL Magnesium 2.1 (1.5-2.6) mg/dL Total Bilirubin 0.6 (0.1-1.5) mg/dL AST 30 (12-35) U/L ALT 32 (4-50) U/L Alkaline Phosphatase 52 (40-150) U/L C-Reactive Protein < 0.5 L (0.5-1.0) mg/dL Total Protein 7.6 (6.0-8.3) g/dL Albumin 4.5 (3.3-5.0) g/dL Procalcitonin < 0.03 L (<0.50) ng/mL Imaging Data CT- Other: Attestation: I have reviewed the pertinent imaging results. Radiologist's impression: Patient: JAKE SYKES Facility:?[facility] Patient ID:?[id number] Site Patient ID:?[id number]. Site :?[id number] Study:?CT ST Neck w/ 103cc [id number] 1:35:20 PM Ordering Physician:Homar Duke Final Report: INDICATION: Pain in right neck, difficulty swallowing TECHNIQUE: CT of the neck with 103 ml iodinated contrast agent. Coronal and sagittal reconstructions are included. COMPARISON: None FINDINGS: There is no mass or other lesion within the soft tissues of the suprahyoid or infrahyoid neck. No cervical lymphadenopathy. The oral cavity, nasopharyngeal, oropharyngeal and hypopharyngeal mucosal spaces are normal. The supraglottic, glottic and infraglottic larynx are unremarkable. The airway including the trachea is normal and is patent. The parotid glands, submandibular and sublingual glands are normal in appearance. The thyroid gland is normal in appearance. Mild secretions along the right tracheal wall. The vascular structures opacify normally with contrast material. Scattered mild cervical spondylosis without significant neural foraminal stenosis. No suspicious lytic or blastic osseous lesions. Visualized paranasal sinuses and mastoid air cells are clear. Visualized orbital and intracranial contents are unremarkable. Supraclavicular regions, mediastinum and soft tissues of the imaged chest wall are unremarkable. Visualized portions of the upper lungs are clear. IMPRESSION: 1. No suspicious enhancement or neck mass. Unremarkable deep soft tissues of the neck. 2. No evidence of acute inflammation. 3. No cervical lymphadenopathy. Please note that all CT scans at this facility use dose modulation, iterative reconstruction, and/or weight-based dosing when appropriate to reduce radiation dose to as low as reasonably achievable. Dictated by Aung Santos MD @ 05/11/2023 2:41:40 PM (Electronic Signature) Discharge Plan Discharge Clinical Impression: Pain with swallowing Patient Disposition: Home, Self-Care Condition: Stable Instructions: Dysphagia (ED) Additional Instructions: Need to keep your ENT appointment, see if they could potentially fit you in in a cancellation spot. Eat small amounts and chew thoroughly. Small sips of liquid as well frequently. Possibly swallowing smaller amounts may feel better. If you do feel that food is actually getting stuck or if you are having increased difficulty swallowing such as not being able to coordinate the food in your mouth to swallow, these are all symptoms that should be further evaluated. At this time your labs and her soft tissue neck CT are normal. Activity Level: Activity as Tolerated Discharge Diet: Regular Prescriptions: No Action omeprazole 40 mg capsule,delayed release(DR/EC) 40 mg PO DAILY Patient Comments: TAKE 1 CAPSULE (40 MG) BY MOUTH ONCE DAILY BEFORE A MEAL. prednisone 20 mg tablet 40 mg PO DAILY amoxicillin 500 mg tablet PO famotidine 20 mg tablet 20 mg PO Follow Up/Referrals: Norm Duncan MD [Primary Care Provider] - Stand Alone Forms: [employer] Info Instructions
--- NOTE | 2023-05-11 13:09 | CRLHL7_ITS ---
For Patients: As a result of the Century Cures Act, medical imaging exams and procedure reports are released immediately into your electronic medical record. You may view this report before your referring provider. If you have questions, please contact your health care provider. INDICATION: Pain in right neck, difficulty swallowing TECHNIQUE: CT of the neck with 103 ml iodinated contrast agent. Coronal and sagittal reconstructions are included. COMPARISON: None FINDINGS: There is no mass or other lesion within the soft tissues of the suprahyoid or infrahyoid neck. No cervical lymphadenopathy. The oral cavity, nasopharyngeal, oropharyngeal and hypopharyngeal mucosal spaces are normal. The supraglottic, glottic and infraglottic larynx are unremarkable. The airway including the trachea is normal and is patent. The parotid glands, submandibular and sublingual glands are normal in appearance. The thyroid gland is normal in appearance. Mild secretions along the right tracheal wall. The vascular structures opacify normally with contrast material. Scattered mild cervical spondylosis without significant neural foraminal stenosis. No suspicious lytic or blastic osseous lesions. Visualized paranasal sinuses and mastoid air cells are clear. Visualized orbital and intracranial contents are unremarkable. Supraclavicular regions, mediastinum and soft tissues of the imaged chest wall are unremarkable. Visualized portions of the upper lungs are clear. IMPRESSION: 1. No suspicious enhancement or neck mass. Unremarkable deep soft tissues of the neck. 2. No evidence of acute inflammation. 3. No cervical lymphadenopathy. Please note that all CT scans at this facility use dose modulation, iterative reconstruction, and/or weight-based dosing when appropriate to reduce radiation dose to as low as reasonably achievable. Dictated by Aung Santos MD @ 05/11/2023 2:41:40 PM (Electronically Signed)
[2023-05-11 13:49] LABS: Albumin* 4.5 g/dL (3.3-5.0); Chloride* 104 mmol/L (96-114); Sodium* 140 mmol/L (135-149)
[2023-05-11 13:50] LABS: Potassium* 4.5 mmol/L (3.6-5.1)
[2023-05-11 13:52] LABS: Alanine Aminotransferase* 32 U/L (4-50); Alkaline Phosphatase* 52 U/L (40-150); Anion Gap 7 mEq/L (7-15); Aspartate Amino Transferase* 30 U/L (12-35); Bilirubin Total* 0.6 mg/dL (0.1-1.5); Blood Urea Nitrogen* 15 mg/dL (5-24); Carbon Dioxide* 29 mmol/L (20-32); Est. Creatinine Clearance* 111.01; Estimated Glomerular Filt Rate 99 ml/min; Total Protein* 7.6 g/dL (6.0-8.3)
[2023-05-11 13:53] LABS: Calcium* 9.8 mg/dL (8.4-10.6); Glucose* 104 mg/dL (60-115); Magnesium* 2.1 mg/dL (1.5-2.6)
[2023-05-11 13:55] LABS: Basophils Percent Auto 0.5 % (0.0-3.0); Eosinophils Percent Auto 1.7 % (0.0-7.0); Hematocrit 48.6 % (37.0-53.0); Hemoglobin* 16.2 gm/dL (13.5-17.5); Immature Granulocytes Pct Auto 0.6 %; Lymphocytes Percent Auto 23.1 % (20-44); Mean Corpuscular HGB Conc 33 gm/dL (32-36); Mean Corpuscular Hemoglobin 31 pg (26-34); Mean Corpuscular Volume 94 fL (80-100); Monocytes Percent Auto 5.9 % (0.0-11.0); Neutrophils Percent Auto 68.2 % (42.0-72.0); Platelet Count* 234 K/uL (140-440); RDW Coefficient of Variation % 11.8 % (11.5-15.5); Red Blood Count 5.17 m/uL (4.30-5.90); White Blood Count* 11.52 K/uL (4.50-11.00)
[2023-05-11 13:59] LABS: C Reactive Protein* < 0.5 mg/dL (0.5-1.0)
[2023-05-11 14:06] LABS: Erythrocyte SedimentationRate* < 2 mm/hr (2-15)
[2023-05-11 14:13] LABS: Procalcitonin* < 0.03 ng/mL (<0.50)
[2023-05-11 14:30] VITALS: BP 129/83; PULSE 69; RESP 16; O2SAT 97
[2023-05-11 15:26] LABS: Creatine Kinase* 217 U/L (54-186)
[2023-05-11 15:27] LABS: Slide Review Reflex No
== END 2023-05-11 15:17 | disposition home or self-care (01) ==
PROVIDERS: Emergency Provider Family Medicine; PCP Surgery
DX: R13.10 Dysphagia, unspecified (principal)
CPT/HCPCS: 36415; 70491; 80053; 82550; 83735; 84145; 85025; 85651; 86140; 99283; 99284; Q9967

== ENCOUNTER 2023-06-25 10:00 | Outpatient (RCR) | payer BC, SELFPAY | END 2023-10-23 23:59 | disposition home or self-care (01) | PROVIDERS: PCP Surgery; Visit Provider Surgery | DX: M54.2 Cervicalgia (principal); G89.29 Other chronic pain; M43.6 Torticollis; R51.9 Headache, unspecified; R42 Dizziness and giddiness; Z51.89 Encounter for other specified aftercare | CPT/HCPCS: 97110; 97112; 97140; 97163; 97530 ==

== ENCOUNTER 2023-11-04 09:16 | Emergency (ER) | payer BC, SELFPAY ==
[2023-11-04 09:57] VITALS: BP 137/90; PULSE 81; RESP 18; TEMP 36.9; O2SAT 98; BMI 28.5
--- NOTE | 2023-11-04 10:29 | ED_ITS ---
HPI - General Adult General Chief complaint: Chest Pain Stated complaint: Chest pain, tingling in left fingertips Time Seen by Provider: 11/04/23 10:29 History of Present Illness HPI narrative: since Saturday started to get tingling sensation in the two fingers on the left hand and in the left leg. has anxiety so thought that was the issue. has a dull feeling on the left side of the face with blurred vision. chest pain-- left substernal into the left armpit. 7/10 scale. taken 7413-9403 mg Tylenol last 0700. has felt very nauseated the past few days. 38-year-old man presenting to the emergency department with his spouse with concern of numbness and tingling a little weakness in his left side evolving over the last 5 days or so. About 3 weeks ago had septoplasty, bilateral endoscopic maxillary antrostomy and total ethmoidectomy with sphenoidectomy and frontal sinusotomy. Did have removal of stents 2 weeks ago. Subsequently began to notice some tingling in the 4th and 5th finger of his left hand. Is not reporting any headache. About 5 days ago had an episode of feeling warm and thumping heart radiating into the left axillary area. This did tingling this then has continued in his left 4th and 5th finger. Also felt quite tight in left forearm. This tingling has has extended into the left leg. Spouse noted him to be limping a little bit when coming in. He is not really complaining of pain just of sensation of a lot of tightness particularly in his left leg. Seems to go down back of the calf into the the toes. Sparing inner thigh. With this episode of this warm and pounding chest discomfort had also experienced nausea. Has this dull feeling on the left side of his face now with some blurriness of left eye vision. Has had come and go episodes of this warm and pounding chest sensation. Had chalked it up initially maybe to anxiety but then after another episode last night and these residual symptoms is just feeling that something is not right. Did have a temperature last night of 100.9 temporal. Does not have any headache. No neck pain. Has not had any purulent drainage. Is not complaining of facial pain. Is not noting diplopia. He does recall being rather short of breath with any degree of exertion as well over the last couple of weeks maybe since surgery. Not related to congestion in his face but more to chest. No history of blood clots reported. Does wear eyeglasses. 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 Related Data Home Medications Medication Instructions Recorded Confirmed omeprazole 40 mg capsule,delayed 40 mg PO DAILY 03/18/22 11/04/23 release famotidine 20 mg tablet 20 mg PO DAILY 05/11/23 11/04/23 Previous Rx's Medication Instructions Recorded promethazine 25 mg tablet 25 mg PO TID PRN nausea and 11/04/23 vomiting #15 tabs Allergies Allergy/AdvReac Type Severity Reaction Status Date / Time No Known Drug Allergies Allergy Verified 11/04/23 15:54 Review of Systems Status of ROS: Reports: 6 or more systems reviewed and unremarkable except as noted in History and below [facility] Social History Smoking Status: Current some day smoker What tobacco products do you use: cigarettes Do you use any of these nicotine containing products: None Second hand tobacco smoke exposure: No How often do you have a drink containing alcohol: 4 or more times a week How many standard drinks containing alcohol do you have on a typical day: 3 or 4 How often do you have six or more drinks on one occasion: Never AUDIT-C Alcohol total score: 5 Non-prescribed substance use: denies use service: Yes Exam Narrative: Exam Narrative: Well-nourished. Well built. NAD. Speaking fluidly. GCS 15. Head is atraumat ic. Nasal passageways appear to be clear. I do not appreciate any unusual swelling. There is some trace tried blood deep about the turbinate area. Extraocular movements are full. Pupils are 3 mm and equal and briskly reactive. Reports unusual sensation adult sensation throughout the left face but especially mid and lower face. Appears to have weakness to eye blink on the left versus the right and less forehead elevation on the left versus the right. Oropharynx initially I thought there was some dropping of the left side is soft palate but this seems a symmetrical on re examination. Lungs are clear equal chest rise and fall. No supraclavicular crepitus. Heart in regular rate and rhythm. Has good peripheral pulses bilaterally, equal. 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 Reports subjective numbness over the 4th and 5th finger. Negative Phalen's and Tinel's. No weakness in the upper extremities. DTRs in the lower extremities are diminished in the left versus the right. He has mildly decreased dorsiflexion of the left versus the right as well. Negative Homans. Const: Vital Signs, click to edit/add: Vital Signs - 24 hr 11/04/23 09:57 Temperature 98.5 F Pulse Rate [Pulse Oximeter] 81 Respiratory Rate 18 Blood Pressure [Ri ght Upper Arm] 137/90 H Pulse Oximetry 98 Oxygen Delivery Me thod Room Air Documenting provider has reviewed patient's vital signs: yes Course Vital Signs Vital signs: Initial Vital Signs Respiratory Effort Normal, Spontaneous, Non-Labored 11/04/23 09:54 Respiratory Depth Normal 11/04/23 09:54 Vital Signs Temperature 98.5 F 11/04/23 09:57 Pulse Rate 81 11/04/23 09:57 Respiratory Rate 18 11/04/23 09:57 Blood Pressure 137/90 H 11/04/23 09:57 Pulse Oximetry 98 11/04/23 09:57 Oxygen Delivery Method Room Air 11/04/23 09:57 Temperature 98.5 F 11/04/23 09:57 Pulse Rate 63 11/04/23 14:01 Respiratory Rate 18 11/04/23 09:57 Blood Pressure 131/98 H 11/04/23 14:00 Pulse Oximetry 97 11/04/23 14:01 Oxygen Delivery Method Room Air 11/04/23 09:57 Medications Administered Medications: Discontinued Medications Generic Name Dose Route Start Last Admin Trade Name Freq PRN Reason Stop Dose Admin Sodium Chloride 1,000 mls @ 1,000 mls/hr 11/04/23 10:43 11/04/23 17:27 0.9 % Sodium Chloride 1000 Ml IV 11/04/23 11:42 Infused .Q1H ONE Infusion Ketorolac Tromethamine 30 mg 11/04/23 17:03 11/04/23 17:15 Ketorolac 30 Mg/Ml Inj IVP 11/04/23 17:04 30 mg ONCE ONE Administration Medical Decision Making MDM Narrative Medical decision making narrative: Very odd constellation of symptoms. Would have concern of post operative septic emboli. Other CVA. The dyspnea on exertion is concerning as well for potential PE. Unrelated dysrhythmia? He is in normal sinus here by my read on initial EKG. Rate of 75. Will likely need extensive imaging. Would like to discuss this further with Neurology. Did discuss this case with neurology. Recommendations were to proceed with MRI of brain and MRA brain and neck. Screening head CT in the meantime, by my read was unremarkable other than fluid in the sinuses. Radiology noting poly sinusitis. Perhaps not unexpected. Considering contrast given IV fluids, as well as ketorolac for discomfort. Study:?MRI-Head W/ and W/O Cont 20 CC DOATERM-11/04/2023 2:32:06 PM Ordering Physician:AUNG STEVEN Final Report: Indication: Left-sided paresthesias Technique: Noncontrast sagittal T1, axial FLAIR, T2 turbo spine echo, and diffusion weighted images. Supplemental post contrast T1 weighted axial and coronal sequences are provided after administration of 20 cc Dotarem gadolinium-based IV contrast. Comparison: None Findings: The ventricles, sulci and gyri are normal size, shape and contour for age. The midline structures are centrally located with no evidence of shift. There are no suspicious intra or extra-axial fluid collections. No evidence of restricted d iffusion to suggest acute ischemia. Incidental 8 mm pineal gland cyst. Expected flow voids in the cavernous carotids and basilar artery. No abnormal contrast enhancement involving the brain parenchyma, meninges, calvarium or skull base. Moderate mucosal thickening and fluid opacification of the ethmoid air cells, and maxillary sinuses and sphenoid sinuses. Moderate opacification of the left frontal sinus. Impression: 1. No evidence of acute infarct or hemorrhage. 2. Few scattered punctate foci of T2 prolongation in the bilateral frontal and right parietal lobes are nonspecific. Differential considerations include sequela of migraine headaches, hypertension, diabetes, collagen vascular disease. 3. No pathologic enhancement. 4. Incidental 1 cm pineal gland cyst. 5. Moderate paranasal sinus disease. Air-fluid levels in the maxillary sinuses, sphenoid sinus and ethmoid air cells may represent acute sinusitis. CT of chest by my read looked to be unremarkable. Perhaps this BAUGH is partially related to deconditioning and nasopharyngeal congestion. Labs and vitals are reassuring over extensive time of monitoring in the emergency department. Some of these episodes, may indeed be related to anxiety. Will have to discuss residual symptoms otherwise with ENT I think. Discomfort improved. See patient discharge plan for further discussion. Medical Records Medical records reviewed: Yes I reviewed the patient's medical records Lab Data Lab results reviewed: Yes I reviewed the patient's lab results Labs: Lab Results 11/04/23 Range/Units 10:30 WBC 6.88 (4.50-11.00) K/uL RBC 4.70 (4.30-5.90) m/uL Hgb 14.7 (13.5-17.5) gm/dL Hct 44.7 (37.0-53.0) % MCV 95 (80-100) fL MCH 31 (26-34) pg MCHC 33 (32-36) gm/dL RDW Coeff of Howard 12.0 (11.5-15.5) % Plt Count 203 (140-440) K/uL Neut % (Auto) 67.5 (42.0-72.0) % Lymph % (Auto) 23.1 (20-44) % Leslie % (Auto) 7.8 (0.0-11.0) % Eos % (Auto) 0.9 (0.0-7.0) % Baso % (Auto) 0.4 (0.0-3.0) % Neut # (Auto) 4.64 (1.7-7.0) K/uL Lymph # (Auto) 1.59 (0.90-2.90) K/uL Leslie # (Auto) 0.50 (0.00-0.90) K/UL Eos # (Auto) 0.06 (0.00-0.50) K/uL Baso # (Auto) 0.03 (0.00-0.30) K/uL Abs Immat Gran (auto) 0.02 (0.00-0.30) K/uL Imm/Tot Granulo (auto) 0.3 % D-Dimer Quant (PE/DVT) < 0.27 (0.00-0.50) ug/ml Sodium 138 (135-149) mmol/L Potassium 4.4 (3.6-5.1) mmol/L Chloride 106 (96-114) mmol/L Carbon Dioxide 25 (20-32) mmol/L Anion Gap 7 (7-15) mEq/L BUN 18 (5-24) mg/dL Creatinine 0.9 (0.5-1.5) mg/dL Estimated Creat Clear 122.15 Estimated GFR 112 ml/min Glucose 106 (60-115) mg/dL Calcium 9.4 (8.4-10.6) mg/dL Magnesium 2.1 (1.5-2.6) mg/dL C-Reactive Protein < 0.5 L (0.5-1.0) mg/dL NT-Pro-B Natriuret Pep < 20 pg/mL TSH 0.725 (0.270-4.20) uIU/mL POC Troponin I 0.00 L (0.01-0.04) ng/ml ECG Data Attestation: I personally reviewed and interpreted this ECG as follows: (normal sinus rhythm without ischemic changes at a rate of 75) Discharge Plan Discharge Clinical Impression: Peripheral neuropathy Patient Disposition: Home w/ Parent or Adult Condition: Stable Instructions: Peripheral Neuropathy (ED) Additional Instructions: Please get hold of your ENT provider for follow-up as soon as possible. Return/be seen for persistent/increasing fever, new/escalating weakness, uncontrolled pain. Suggestions are also to [place] back around to neurology again for repeat evaluation. Sending in a prescription for promethazine for nausea if needed. Prescriptions: New promethazine 25 mg tablet 25 mg PO TID PRN (Reason: nausea and vomiting) Qty: 15 0RF No Action omeprazole 40 mg capsule,delayed release(DR/EC) 40 mg PO DAILY Patient Comments: TAKE 1 CAPSULE (40 MG) BY MOUTH ONCE DAILY BEFORE A MEAL. famotidine 20 mg tablet 20 mg PO DAILY Follow Up/Referrals: Norm Duncan MD [Primary Care Provider] - Stand Alone Forms: [employer] [facility] Info Instructions
[2023-11-04 10:56] LABS: Basophils Absolute Auto 0.03 K/uL (0.00-0.30); Basophils Percent Auto 0.4 % (0.0-3.0); Eosinophils Absolute Auto 0.06 K/uL (0.00-0.50); Eosinophils Percent Auto 0.9 % (0.0-7.0); Hematocrit 44.7 % (37.0-53.0); Hemoglobin* 14.7 gm/dL (13.5-17.5); Immature Granulocytes Abs Auto 0.02 K/uL (0.00-0.30); Immature Granulocytes Pct Auto 0.3 %; Lymphocytes Absolute Auto 1.59 K/uL (0.90-2.90); Lymphocytes Percent Auto 23.1 % (20-44); Mean Corpuscular HGB Conc 33 gm/dL (32-36); Mean Corpuscular Hemoglobin 31 pg (26-34); Mean Corpuscular Volume 95 fL (80-100); Monocytes Percent Auto 7.8 % (0.0-11.0); Neutrophils Absolute Auto 4.64 K/uL (1.7-7.0); Neutrophils Percent Auto 67.5 % (42.0-72.0); Platelet Count* 203 K/uL (140-440); White Blood Count* 6.88 K/uL (4.50-11.00)
[2023-11-04 11:05] LABS: Slide Review Reflex No
--- NOTE | 2023-11-04 11:17 | MR_ITS ---
Patient: JAKE SYKES Facility:?[facility] Patient ID:?[id number] Site Patient ID:?[id number]. Site :?1985 Study:?MRI-Head W/ and W/O Cont 20 CC DOATERM-11/04/2023 2:32:06 PM Ordering Physician:AUNG STEVEN Final Report: Indication: Left-sided paresthesias Technique: Noncontrast sagittal T1, axial FLAIR, T2 turbo spine echo, and diffusion weighted images. Supplemental post contrast T1 weighted axial and coronal sequences are provided after administration of 20 cc Dotarem gadolinium-based IV contrast. Comparison: None Findings: The ventricles, sulci and gyri are normal size, shape and contour for age. The midline structures are centrally located with no evidence of shift. There are no suspicious intra or extra-axial fluid collections. No evidence of restricted diffusion to suggest acute ischemia. Incidental 8 mm pineal gland cyst. Expected flow voids in the cavernous carotids and basilar artery. No abnormal contrast enhancement involving the brain parenchyma, meninges, calvarium or skull base. Moderate mucosal thickening and fluid opacification of the ethmoid air cells, and maxillary sinuses and sphenoid sinuses. Moderate opacification of the left frontal sinus. Impression: 1. No evidence of acute infarct or hemorrhage. 2. Few scattered punctate foci of T2 prolongation in the bilateral frontal and right parietal lobes are nonspecific. Differential considerations include sequela of migraine headaches, hypertension, diabetes, collagen vascular disease. 3. No pathologic enhancement. 4. Incidental 1 cm pineal gland cyst. 5. Moderate paranasal sinus disease. Air-fluid levels in the maxillary sinuses, sphenoid sinus and ethmoid air cells may represent acute sinusitis. Dictated by Aung Santos MD @ 11/04/2023 2:45:20 PM Signed by:?Aung Santos MD @11/04/2023 2:45:20 PM (Electronic Signature)
--- NOTE | 2023-11-04 11:17 | MR_ITS ---
Patient: JAKE SYKES Facility:?[facility] Patient ID:[id number] Site Patient ID:?[id number]. Site :?1985 Study:?MRI-Neck Angio W/ and W/O Cont 20 CC DOATERM-11/04/2023 2:34:52 PM Ordering Physician:AUNG STEVEN Final Report: Indication: LT SIDED PARESTHESIA. Technique: [id number] and Gadolinium bolus MR angiogram of the neck with 3D MIP reconstructions provided. All measurements are based on NASCET criteria. Postcontrast images obtained after administration of 20 cc Dotarem Gadolinium- based IV contrast. Comparison: No prior studies available for comparison at this institution. Findings: Both carotid systems are unremarkable in the neck. No evidence for hemodynamically significant internal carotid artery stenosis by NASCET criteria. The cervical segments of both vertebral arteries are patent. The visualized portions of the aortic arch, great vessel origins and proximal subclavian arteries are unremarkable. Impression: Unremarkable MRA of the neck as far as visualized. Dictated by Aung Santos MD @ 11/04/2023 2:50:16 PM Signed by:?Aung Santos MD @11/04/2023 2:50:16 PM (Electronic Signature)
--- NOTE | 2023-11-04 11:17 | MR_ITS ---
Patient: JAKE SYKES Facility:?[facility] Patient ID:?[id number] Site Patient ID:?[id number]. Site :?1985 Study:?MRI-Head MRA W/O-11/04/2023 2:33:19 PM Ordering Physician:AUNG STEVEN Final Report: Indication: LT SIDED WEAKNESS Technique: 3D [id number] MR angiogram of the [id number]-in-[id number] with 3-dimensional MIP projections were submitted. Comparison: No prior studies available for comparison at this institution. Findings: The visualized first and second order intracranial vessels are unremarkable. No occlusion/filling defect or acquired arterial stenosis identified. No aneurysm or vascular malformation seen. Paranasal sinus disease is better seen on the accompanying MRI brain study. Impression: No evidence of proximal arterial occlusion, aneurysm, dissection, or vascular malformation. Dictated by Aung Santos MD @ 11/04/2023 2:47:31 PM Signed by:?Aung Santos MD @11/04/2023 2:47:31 PM (Electronic Signature)
--- NOTE | 2023-11-04 11:21 | CT_ITS ---
Patient: JAKE SYKES Facility:?[facility] Patient ID:?[id number] Site Patient ID:?[id number]. Site :?1985 Study:?CT-Head W/O-11/04/2023 11:56:12 AM Ordering Physician:Natalee Final Report: INDICATION: Numbness and tingling in the left arm TECHNIQUE: Non-contrast CT of the head is submitted. Compared to report from prior study from March 20, 2022 FINDINGS: The ventricles, sulci and gyri are of normal size, shape and contour. Midline structures are centrally located. No convincing evidence of intra- or extra- axial fluid collections. Moderate mucosal thickening seen scattered throughout the paranasal sinuses with relative sparing of the right frontal sinus. IMPRESSION: 1. No radiographic evidence of acute intracranial abnormalities. 2. Poly sinusitis. Please note that all CT scans at this facility use dose modulation, iterative reconstruction, and/or weight-based dosing when appropriate to reduce radiation dose to as low as reasonably achievable. Dictated by Terence Goldsmith MD @ 11/04/2023 12:21:25 PM Signed by:?Terence Goldsmith MD @11/04/2023 12:21:25 PM (Electronic Signature)
[2023-11-04 11:23] LABS: Chloride* 106 mmol/L (96-114); Potassium* 4.4 mmol/L (3.6-5.1); Sodium* 138 mmol/L (135-149)
[2023-11-04 11:26] LABS: Anion Gap 7 mEq/L (7-15); Blood Urea Nitrogen* 18 mg/dL (5-24); Carbon Dioxide* 25 mmol/L (20-32); Creatinine* 0.9 mg/dL (0.5-1.5); Est. Creatinine Clearance* 122.15; Estimated Glomerular Filt Rate 112 ml/min
[2023-11-04 11:27] LABS: Calcium* 9.4 mg/dL (8.4-10.6); Glucose* 106 mg/dL (60-115); Magnesium* 2.1 mg/dL (1.5-2.6)
[2023-11-04 11:32] LABS: C Reactive Protein* < 0.5 mg/dL (0.5-1.0)
[2023-11-04 11:39] LABS: NT Pro B Type NatriureticPept* < 20 pg/mL
[2023-11-04 11:44] LABS: D Dimer Quantitative* < 0.27 ug/ml (0.00-0.50)
[2023-11-04 11:57] LABS: Thyroid Stimulating Hormone* 0.725 uIU/mL (0.270-4.20)
[2023-11-04] MEDS: 0.9 % SODIUM CHLORIDE 1000 ml 1,000 ML IV (12:00)
[2023-11-04 14:00] VITALS: BP 131/98; PULSE 61; O2SAT 98
[2023-11-04 14:01] VITALS: PULSE 63; O2SAT 97
--- NOTE | 2023-11-04 15:25 | CT_ITS ---
Patient: JAKE SYKES Facility:?[facility] Patient ID:?[id number] Site Patient ID:?[id number]. Site :?1985 Study:?CT-Chest PE PROTOCOL W/ 95CC ISOVUE 370-11/04/2023 3:57:42 PM Ordering Physician:ZACHARY Final Report: Indication: Dyspnea on exertion for 2-1/2 weeks. Technique: CT pulmonary arteriography of the chest was performed following the administration of 95 mL Isovue 370. Comparison: None available. Findings: Lungs and pleura: No focal consolidation. Few punctate pulmonary nodules, some may have developing calcification suggesting granuloma. Minimal dependent atelectasis in the lower lobes. No pleural effusion or pneumothorax. Heart and great vessels: The heart is normal in size. No pericardial effusion. Aorta and pulmonary artery are normal in caliber. No evidence of right heart strain. Pulmonary artery opacification is adequate. No evidence of pulmonary embolism. Thyroid and mediastinum: Thyroid is normal. No mediastinal lymphadenopathy by size criteria. Chest wall: Unremarkable. Visualized upper abdomen: Unremarkable. Bones: Unremarkable for age. Impression: 1. No evidence of pulmonary embolism. 2. No acute abnormality identified in the chest. Please note that all CT scans at this facility use dose modulation, iterative reconstruction, and/or weight-based dosing when appropriate to reduce radiation dose to as low as reasonably achievable. Dictated by Lisbeth Cárdenas MD @ 11/04/2023 4:42:45 PM Signed by:?Lisbeth Cárdenas MD @11/04/2023 4:42:45 PM (Electronic Signature)
[2023-11-04] MEDS: KETOROLAC 30 MG/ML inj IVP (17:15)
== END 2023-11-04 17:27 | disposition home or self-care (01) ==
PROVIDERS: Emergency Provider Family Medicine; PCP Surgery
DX: G62.9 Polyneuropathy, unspecified (principal)
CPT/HCPCS: 36415; 70450; 70544; 70549; 70553; 71275; 80048; 80306; 83735; 83880; 84443; 84484; 85025; 85379; 86140; 87040; 93005; 96374; 99284; 99285; A9575; J1885; J7030; Q9967